=== PATIENT | male | born 1950 | race Caucasian/White ===

== ENCOUNTER 2016-05-22 10:13 | Emergency (ER) | payer OTHER ==
[~2016-05-22] VITALS: Ht 162.6 cm; Wt 90.7 kg
[2016-05-22 10:20] VITALS: BP 120/73
--- NOTE | 2016-05-22 10:52 | RADIOLOGY REPORT ---
EXAMINATION: XR ANKLE, LEFT CLINICAL INFORMATION: Pain, swelling and bruising COMPARISON: None TECHNIQUE: AP, lateral, and mortise views of the left ankle. FINDINGS: Moderate soft tissue swelling is seen laterally. No acute fracture or dislocation is seen. Several corticated densities are seen at the tip of the lateral malleolus presumably related to remote trauma. The ankle mortise is symmetric. IMPRESSION: Moderate soft tissue swelling. No acute fracture or malalignment is seen.
--- NOTE | 2016-05-22 11:17 | ED ANKLE/FOOT INJURY COMPLAINT ---
History of Present Illness General Chief Complaint: Lower Extremity Problems Stated Complaint: "I NEED AN XRAY" LEFT LEG Source: patient, old records Exam Limitations: no limitations Vital Signs & Intake/Output Vital Signs & Intake/Output Vital Signs Date Time Temp Pulse Resp B/P Pulse O2 O2 Flow FiO2 Ox Delivery Rate 05/22 1020 96.9 58 20 120/73 98 Room Air Room Air Allergies Coded Allergies: NO KNOWN ALLERGIES (10/25/10) Reconcile Medications No Known Home Medications Triage Note: PT TO ED WITH C/O LEFT ANKLE PAIN AND SWELLING SINCE MONDAY, S/P TRIPPED ON POT HOLE. Triage Nurses Notes Reviewed? yes Occurred: last week Duration: day(s): (), better, constant Timing: recent history Severity: mild Severity Numbers: 3 Pain/Injury Location: Left: Ankle. Method of Injury: twisted No Modifying Factors: none Associated Symptoms: swelling HPI: This is a [id number]-year-old male resents complaining of left lateral ankle pain and swelling aching constant nonradiating for the past 6 days after he twisted his foot when he stepped in a pothole. He states she's been able to ambulate since however with pain. He has not taken anything for his symptoms. He denies any other leg foot or hip injury he did not hit his head when he fell there is no loss of consciousness. There are no modifying factors or associated symptoms otherwise Past History Travel History Traveled to [place] past 21 day No Medical History Any Pertinent Medical History? none Neurological: NONE EENT: NONE Cardiovascular: NONE Respiratory: NONE Gastrointestinal: NONE Hepatic: NONE Renal: NONE Musculoskeletal: NONE Psychiatric: NONE Endocrine: NONE Blood Disorders: NONE Cancer(s): NONE IN HOME NANNY/Reproductive: NONE Surgical History Surgical History: non-contributory Psychosocial History What is your primary language Slovak Tobacco Use: Quit >30 days ago ETOH Use: denies use Illicit Drug Use: denies illicit drug use Family History Hx Contributory? No Review of Systems Review of Systems Constitutional: Reports: see HPI. All Other Systems: Reviewed and Negative Comments Review of systems: See HPI, All other systems negative. Constitutional, no chills no fever, no malaise HEENT: No visual changes no sore throat no congestion Cardiovascular: No chest pain , no palpitation Skin, no rashes, no change in skin Respiratory: No dyspnea no cough no sputum GI: No nausea no vomiting, no diarrhea : No dysuria Muscle skeletal: joint pain, joint swelling, no back pain, no neck pain, Neurologic: No numbness no headache Psych: No stress Heme/endocrine: No bruising no bleeding Immunology: No lymphadenopathy Physical Exam Physical Exam General Appearance: well developed/nourished, no apparent distress, alert, awake Leg/Knee/Thigh Left: normal range of motion, normal inspection Comments: Well-developed well-nourished patient in no apparent distress. HEENT: Atraumatic, extraocular motion intact Neck: Supple, FROM, no lymphadenopathy Back: FROM, Nontender Cardiovascular: Regular rate and rhythms no murmurs rubs or gallops, Respiratory: Chest nontender.There were no bony deformities, no asymmetry. No respiratory distress. Patient speaking in full complete sentences. Breath sounds clear to auscultation bilaterally: NO W/R/R Upper Extremities: full range of motion Hip/Pelvis: Atraumatic/Stable. FROM. No pain with pelvic compression Knee: Atraumatic/stable. FROM. No joint swelling, no effusion. No laxity. Negative vick/anterior drawer test. No pain with ROM Leg: Atraumatic. Nontender. No edema, 5 out of 5 strength in the lower extremity, normal dorsiflexion of great toe bilaterally, gross sensation is intact, patellar tendon reflex 2+ bilaterally. Ankle/Foot: Ankle with MILD tenderness laterally over the lateral ligaments. No bony tenderness. No medial tenderness. from No instability is noted. Skin is intact, (+) swelling over the lateral malleolus, no ecchymosis noted. The foot is neurovascularly intact with sensation and motor grossly intact. There is no foot tenderness or fifth metatarsal tenderness. Able to move all toes. Palpable and intact achilles tendon. There is no proximal tib/fib tenderness Pulses: Normal/equal DP/PT pulses bilaterally. Brisk cap refill Neuro: Alert and oriented x3 Skin: Warm & dry;No appreciable rash on exposed skin Psych: Mood affect normal, normal memory normal judgment. Progress Differential Diagnosis: cellulitis, fracture, dislocation, sprain, contusion, compartmental syndrome Plan of Care: Discussed with the patient his x-ray results he is declining any further pain offered advised supportive care rest ice Tylenol Motrin Pranav wrap was applied patient is declining crutches I answered all his questions he feels comfortable with this plan Diagnostic Imaging: Viewed by Me: Radiology Read. Discussed w/RAD: Radiology Read. Radiology Impression: PATIENT: JACK OLSEN PRESENT AGE: 66 PATIENT ACCOUNT NO: [id number] : 50 LOCATION: [facility] ORDERING PHYSICIAN: YOLANDA SANTANA DO (TBS) SERVICE DATE: 05/22/16 EXAM TYPE: RAD - XRY-ANKLE 3 OR MORE VIEWS L EXAMINATION: XR ANKLE, LEFT CLINICAL INFORMATION: Pain, swelling and bruising COMPARISON: None TECHNIQUE: AP, lateral, and mortise views of the left ankle. FINDINGS: Moderate soft tissue swelling is seen laterally. No acute fracture or dislocation is seen. Several corticated densities are seen at the tip of the lateral malleolus presumably related to remote trauma. The ankle mortise is symmetric. IMPRESSION: Moderate soft tissue swelling. No acute fracture or malalignment is seen. DICTATED BY: PRITI CHAN MD DATE/TIME DICTATED:05/22/161047 ZINC PLATING MACHINE OPERATOR:ELLIOT DATE/TIME TRANSCRIBED:05/22/161047 CONFIDENTIAL, DO NOT COPY WITHOUT APPROPRIATE AUTHORIZATION. <Electronically signed in Other Vendor System> SIGNED BY: PRITI CHAN MD 05/22/16 1052 Departure Departure Time of Disposition: 1123 Disposition: HOME OR SELF CARE Condition: Stable Clinical Impression Primary Impression: Ankle sprain Referrals: PATIENT HAS NO PRIMARY CARE DR (PCP/Family) Additional Instructions: REST, ICE, TYLENOL OR MOTRIN. PRANAV WRAP DISCUSSED. FOLLOW UP WITH YOUR PMD, RETURN WITH ANY CONCERNS Departure Forms: Customer Survey General Discharge Information Prescriptions: Current Visit Scripts No Known Home Medications
== END 2016-05-22 11:30 ==
LOC: ERH 10:13
DX: S93.402A Sprain of unspecified ligament of left ankle, initial encounter (principal); W18.42XA Slipping, tripping and stumbling without falling due to stepping into hole or opening, initial encounter
CPT/HCPCS: 73610-LT